=== PATIENT | male | born 1990 | race Caucasian/White ===

== ENCOUNTER 2017-06-14 13:53 | Inpatient (IN) | payer MEDICAID ==
[~2017-06-14] VITALS: Ht 182.9 cm; Wt 72.6 kg
[2017-06-14 14:57] LABS: BASOPHILS % (AUTO) 0.5 % (0.0-2.0); EOSINOPHILS % (AUTO) 0.6 % (1.0-6.0); HEMATOCRIT 43.8 % (41-53); HEMOGLOBIN 14.9 g/dL (13.5-17.5); LYMPHOCYTES # (AUTO) 1.3 K/uL (1.0-4.8); LYMPHOCYTES % (AUTO) 15.4 % (22.0-44.0); MEAN CORPUSCULAR HEMOGLOBIN 28.6 pg (26.0-34.0); MEAN CORPUSCULAR HGB CONC 34.1 G/dL (31.0-37.0); MEAN CORPUSCULAR VOLUME 84 fL (80-100); MONOCYTES # (AUTO) 0.7 K/uL (0.1-1.0); MONOCYTES % (AUTO) 7.8 % (2.0-9.0); NEUTROPHILS # (AUTO) 6.6 K/uL (1.8-7.7); NEUTROPHILS % (AUTO) 75.7 % (40.0-70.0); PLATELET COUNT (AUTO) 243 K/uL (150-450); RED BLOOD CELL COUNT(AUTO) 5.23 MIL/uL (4.50-5.90); RED CELL DISTRIBUTION WIDTH 12.8 % (11.5-14.5)
[2017-06-14 15:09] LABS: ANION GAP 12 mmol/L (8-16); CARBON DIOXIDE 29 mmol/L (22-29); CHLORIDE 101 mmol/L (98-107); CREATININE 1.31 mg/dL (0.60-1.30); GLOMERULAR FILTR. RATE CALC > 60 mL/min (>60); GLUCOSE,RANDOM 80 mg/dL (70-110); POTASSIUM 4.4 mmol/L (3.5-5.1); SODIUM SERUM 142 mmol/L (136-145); UREA NITROGEN, BLOOD 14 mg/dL (7-18)
[2017-06-14 15:14] LABS: ALANINE AMINOTRANSFERASE 44 U/L (12-78); ALBUMIN 4.4 g/dL (3.4-5.0); ALKALINE PHOSPHATASE 102 U/L (46-116); ASPARTATE AMINOTRANSFERASE 22 U/L (15-37); BILIRUBIN,TOTAL 0.7 mg/dL (0.1-1.0); TOTAL PROTEIN, SERUM 8.2 g/dL (6.4-8.2)
[2017-06-14 15:36] LABS: AMPHET/METH SCREEN,URINE NEGATIVE (NEGATIVE); BARBITURATE SCREEN, URINE NEGATIVE (NEGATIVE); BENZODIAZEPINES SCREEN,URINE NEGATIVE (NEGATIVE); CANNABINOID SCREEN,URINE POSITIVE (NEGATIVE); COCAINE SCREEN,URINE NEGATIVE (NEGATIVE); METHADONE SCREEN, URINE NEGATIVE (NEGATIVE); OPIATE SCREEN,URINE NEGATIVE (NEGATIVE)
[2017-06-14 15:37] LABS: PHENCYCLIDINE SCREEN,URINE NEGATIVE (NEGATIVE)
[2017-06-14 15:39] LABS: PLATELET MORPHOLOGY COMMENT NORMAL
[2017-06-14] MEDS ORDERED: CefTRIAXone SODIUM 1 GM/VIAL IM ONE (15:45)
[2017-06-14] MEDS ORDERED: LORazepam 1 MG TABLET PO ONE (15:45)
[2017-06-14] MEDS ORDERED: HALOPERIDOL 5 MG TABLET PO ONE (15:45)
[2017-06-14] MEDS ORDERED: DiphenhydrAMINE HCL 25 MG CAPSULE PO ONE (15:45)
[2017-06-14] MEDS ORDERED: LIDOCAINE HCL/PF 1% 5 ML VIAL ONE (16:32)
[2017-06-14] MEDS ORDERED: HALOPERIDOL 5 MG TABLET PO PRN (17:00)
[2017-06-14 19:15] VITALS: BP 117/75
[2017-06-14] MEDS ORDERED: IBUPROFEN 400 MG TABLET PO PRN (21:45)
[2017-06-14] MEDS ORDERED: ACETAMINOPHEN 325 MG TABLET PO PRN (21:45)
[2017-06-14] MEDS: ZOLPIDEM TARTRATE 10 MG TABLET PO PRN (22:17)
[2017-06-15 06:32] VITALS: BP 127/91
[2017-06-15 08:24] VITALS: BP 119/69
[2017-06-15] MEDS: BACITRACIN 28.4 GM OINTMENT TP SCH ×2 (08:35→17:13)
[2017-06-15 08:52] LABS: CHOL/HDL RATIO 2.4 (4.2-7.3)
[2017-06-15] MEDS ORDERED: ACETAMINOPHEN 325 MG TABLET PO PRN (11:30)
[2017-06-15] MEDS: LORazepam 2 MG TABLET PO PRN (12:44)
[2017-06-15 13:45] VITALS: BP 109/64
[2017-06-15 16:45] VITALS: BP 108/67
[2017-06-16 00:52] VITALS: BP 123/86
[2017-06-16] MEDS: RisperiDONE 3 MG TABLET PO SCH ×2 (08:10→16:12)
[2017-06-16] MEDS: BACITRACIN 28.4 GM OINTMENT TP SCH ×2 (08:10→16:14)
[2017-06-16] MEDS: DIVALPROEX SODIUM 500 MG DR TABLET PO SCH ×2 (08:10→16:12)
[2017-06-16] MEDS: LORazepam 2 MG TABLET PO PRN (08:10)
[2017-06-16 08:30] VITALS: BP 132/83
[2017-06-16 09:18] LABS: HEMOGLOBIN A1C 4.9 % (4.5-6.2)
[2017-06-16 09:30] LABS: CHOL/HDL RATIO 2.4 (4.2-7.3); THYROID STIMULATING HORMONE 1.3 uIU/mL (0.36-3.74)
[2017-06-16 16:05] VITALS: BP 135/84
[2017-06-16] MEDS: ZOLPIDEM TARTRATE 10 MG TABLET PO PRN (20:45)
[2017-06-17 06:52] VITALS: BP 106/65
[2017-06-17 08:04] VITALS: BP 110/70
[2017-06-17 08:06] LABS: HIV 1-2 SCREEN 4TH GEN W/RFLX Non Reactive (Non Reactive)
[2017-06-17] MEDS: RisperiDONE 3 MG TABLET PO SCH ×2 (09:34→16:46)
[2017-06-17] MEDS: BACITRACIN 28.4 GM OINTMENT TP SCH ×2 (09:34→16:46)
[2017-06-17] MEDS: DIVALPROEX SODIUM 500 MG DR TABLET PO SCH ×2 (09:34→16:46)
[2017-06-17 16:00] VITALS: BP 114/69
[2017-06-17] MEDS: LORazepam 2 MG TABLET PO PRN (16:18)
[2017-06-18 06:26] VITALS: BP 106/65
[2017-06-18 08:05] VITALS: BP 110/65
[2017-06-18] MEDS: BACITRACIN 28.4 GM OINTMENT TP SCH ×2 (08:50→16:39)
[2017-06-18] MEDS: RisperiDONE 3 MG TABLET PO SCH ×2 (08:50→16:39)
[2017-06-18] MEDS: DIVALPROEX SODIUM 500 MG DR TABLET PO SCH ×2 (08:50→16:39)
[2017-06-18 16:00] VITALS: BP 124/68
[2017-06-18] MEDS: LORazepam 2 MG TABLET PO PRN (16:39)
[2017-06-18] MEDS ORDERED: SELENIUM SULFIDE 1% 207 ML SHAMPOO TP PRN (20:45)
[2017-06-19 02:51] VITALS: BP 107/72
[2017-06-19] MEDS: IBUPROFEN 400 MG TABLET PO PRN (02:52)
[2017-06-19] MEDS: CLOTRIMAZOLE 1% 15 GM CREAM TP SCH (08:12)
[2017-06-19] MEDS: BACITRACIN 28.4 GM OINTMENT TP SCH ×2 (08:12→17:00)
[2017-06-19 08:18] VITALS: BP 117/68
[2017-06-19] MEDS: RisperiDONE 3 MG TABLET PO SCH ×2 (09:00→17:00)
[2017-06-19] MEDS: DIVALPROEX SODIUM 500 MG DR TABLET PO SCH ×2 (09:00→17:00)
[2017-06-19] MEDS: LORazepam 2 MG TABLET PO PRN ×2 (09:43→20:21)
[2017-06-19 16:00] VITALS: BP 137/80
[2017-06-19] MEDS: ZOLPIDEM TARTRATE 10 MG TABLET PO PRN (20:21)
[2017-06-20 06:22] VITALS: BP 109/69
[2017-06-20 08:00] VITALS: BP 114/70
[2017-06-20] MEDS: CLOTRIMAZOLE 1% 15 GM CREAM TP SCH (08:47)
[2017-06-20] MEDS: DIVALPROEX SODIUM 500 MG DR TABLET PO SCH ×2 (09:00→17:00)
[2017-06-20] MEDS: BACITRACIN 28.4 GM OINTMENT TP SCH ×2 (09:00→16:11)
[2017-06-20] MEDS: RisperiDONE 3 MG TABLET PO SCH ×2 (09:00→17:00)
[2017-06-20] MEDS: LORazepam 2 MG TABLET PO PRN ×2 (09:46→17:46)
[2017-06-20 16:00] VITALS: BP 138/85
[2017-06-20] MEDS: KETOCONAZOLE 2% 120 ML SHAMPOO TP SCH (16:11)
[2017-06-20] MEDS: FLUOCINONIDE 0.05% TP SCH (16:14)
[2017-06-20] MEDS: IBUPROFEN 400 MG TABLET PO PRN (20:34)
[2017-06-20] MEDS: ZOLPIDEM TARTRATE 10 MG TABLET PO PRN (20:35)
[2017-06-21 00:15] VITALS: BP 100/66
[2017-06-21 08:04] VITALS: BP 129/86
[2017-06-21] MEDS: DIVALPROEX SODIUM 500 MG DR TABLET PO SCH ×2 (09:00→16:57)
[2017-06-21] MEDS: RisperiDONE 3 MG TABLET PO SCH ×2 (09:00→16:57)
[2017-06-21] MEDS: BACITRACIN 28.4 GM OINTMENT TP SCH ×2 (09:38→16:57)
[2017-06-21] MEDS: FLUOCINONIDE 0.05% TP SCH ×2 (09:39→16:57)
[2017-06-21] MEDS: CLOTRIMAZOLE 1% 15 GM CREAM TP SCH (09:39)
[2017-06-21] MEDS: KETOCONAZOLE 2% 120 ML SHAMPOO TP SCH (14:24)
[2017-06-21] MEDS: LORazepam 2 MG TABLET PO PRN (14:25)
[2017-06-21 16:00] VITALS: BP 114/65
[2017-06-21] MEDS: ZOLPIDEM TARTRATE 10 MG TABLET PO PRN (22:45)
[2017-06-22 05:04] VITALS: BP 109/72
[2017-06-22] MEDS: IBUPROFEN 400 MG TABLET PO PRN (05:07)
[2017-06-22 08:07] VITALS: BP 136/87
[2017-06-22] MEDS: RisperiDONE 3 MG TABLET PO SCH (08:25)
[2017-06-22] MEDS: DIVALPROEX SODIUM 500 MG DR TABLET PO SCH (08:25)
[2017-06-22] MEDS: BACITRACIN 28.4 GM OINTMENT TP SCH (08:27)
[2017-06-22] MEDS: FLUOCINONIDE 0.05% TP SCH (08:28)
[2017-06-22] MEDS: CLOTRIMAZOLE 1% 15 GM CREAM TP SCH (08:29)
== END 2017-06-22 13:20 | disposition home or self-care (01) | DRG 751 ==
LOC: EMS 13:54 → B2S 17:51 → B3A 06-15 13:10
PROVIDERS: ADMIT Psychiatry & Neurology Psychiatry; ATTEND Psychiatry & Neurology Psychiatry
DX: F29 Unspecified psychosis not due to a substance or known physiological condition (principal); R00.1 Bradycardia, unspecified; R45.851 Suicidal ideations; F22 Delusional disorders; F32.9 Major depressive disorder, single episode, unspecified; F10.10 Alcohol abuse, uncomplicated; F41.9 Anxiety disorder, unspecified; F19.10 Other psychoactive substance abuse, uncomplicated
CPT/HCPCS: 83036; 84443; 87389; 99285; G0480; J0696; J3490

== ENCOUNTER 2017-07-22 17:53 | Emergency (ER) | payer MEDICAID ==
[~2017-07-22] VITALS: Ht 182.9 cm; Wt 72.7 kg
[2017-07-22 18:09] VITALS: BP 136/93
== END 2017-07-22 19:01 | disposition home or self-care (01) ==
LOC: EMS 17:57 → EDBD 17:57 → EMS 19:01
DX: Z72.53 High risk bisexual behavior (principal); B00.9 Herpesviral infection, unspecified; F32.9 Major depressive disorder, single episode, unspecified; F17.200 Nicotine dependence, unspecified, uncomplicated
CPT/HCPCS: 99283